=== PATIENT | male | born 2000 | race African-American/Black ===

== ENCOUNTER 2023-11-13 07:23 | Emergency (ER) | payer SELFPAY ==
[2023-11-13] MEDS ORDERED: Azithromycin 250 MG TAB ONE (07:42)
[2023-11-13] MEDS ORDERED: cefTRIAXone (ROCEPHIN) 500 MG VIAL ONE (07:42)
[2023-11-13] MEDS ORDERED: Sterile Water 10 ML ONE (07:43)
[2023-11-13 08:07] LABS: Bilirubin Neg (Negative); Blood, Urine 25 (Negative); Clarity Cloudy (Clear); Glucose, Urine (Dipstick) Normal (Negative); Ketone, Urine Negative (Negative); Leukocyte 500 (Negative); Nitrite Negative (Negative); Protein, Urine (Dipstick) 15 mg/dl (Neg-Trace); Urobilinogen Normal mg/dL (Less than 2)
[2023-11-13 08:16] LABS: Bacteria/HPF 1+ HPF (None Seen); CAUTI Indications for Culture Dysuria,urgency,freq; Squamous Epithelial 0-3 HPF (0-3); WBC/HPF Greater than 50 HPF (0-3)
[2023-11-13 08:17] LABS: Urine Culture Reflex Yes Yes
[2023-11-13 23:55] LABS: Chlam.trachomatis by PCR,Urine DETECTED (NotDetected); GC N.gonorrhoeae PCR,UrineVOID DETECTED (NotDetected)
== END 2023-11-13 08:25 | disposition home or self-care (01) ==
LOC: CSHERS 07:23
DX: N34.1 Nonspecific urethritis (principal)
CPT/HCPCS: 81001; 87086; 87491; 87591; 96372; 99283; J0696